=== PATIENT | female | born 1955 | race Caucasian/White ===

== ENCOUNTER 2024-02-14 09:36 | Outpatient (CLI) | payer BC | END 2024-02-14 09:44 | disposition home or self-care (01) | LOC: MAMO-SONO 09:36 | DX: Z12.31 Encounter for screening mammogram for malignant neoplasm of breast (principal) ==

== ENCOUNTER → 2025-02-18 | Outpatient (CLI) | payer BC | END | disposition home or self-care (01) | LOC: MAMO-SONO 10:38 | DX: N60.19 Diffuse cystic mastopathy of unspecified breast (principal) ==